=== PATIENT | female | born 2000 | race African-American/Black ===

== ENCOUNTER 2021-12-04 12:18 | Emergency (ER) | payer MEDICAID ==
[~2021-12-04] VITALS: Ht 157.5 cm; Wt 73.0 kg
[2021-12-04 13:26] VITALS: BP 117/78
[2021-12-04 14:15] LABS: BASOPHILS % 0.4 % (0.0-2.0); EOSINOPHILS % 4.6 % (0.0-5.0); HEMATOCRIT. 36.6 % (36.0-48.0); HEMOGLOBIN. 12.4 g/dL (12.0-16.0); LYMPHOCYTES % 21.2 % (20.0-50.0); MEAN CORPUSCULAR HEMOGLOBIN 27.5 pg (28.0-32.0); MEAN CORPUSCULAR VOLUME 81.3 fL (81.0-99.0); MEAN PLATELET VOLUME 9.3 fl (7.4-10.4); MONOCYTES % 6.5 % (2.0-8.0); NEUTROPHILS % 67.3 % (40.0-76.0); PLATELET 281 x1000/uL (130-400); RED BLOOD CELL COUNT 4.51 mill/uL (4.2-5.4); RED CELL DISTRIBUTION WIDTH 13.9 % (11.6-14.6)
[2021-12-04 14:24] LABS: CHLORIDE 109 mEq/L (98-107)
[2021-12-04 14:33] LABS: CLARITY URINE CLEAR (CLEAR); COLOR URINE YELLOW (YELLOW); KETONES URINE NEGATIVE (NEGATIVE); LEUKOCYTE ESTERASE URINE 1+ (NEGATIVE); NITRITE URINE NEGATIVE (NEGATIVE); OCCULT BLOOD URINE NEGATIVE (NEGATIVE); PROTEIN URINE NEGATIVE (NEGATIVE); SPECIFIC GRAVITY URINE 1.024 (1.005-1.030); UROBILINOGEN URINE 0.2 E.U./dL (0.2-1.0)
[2021-12-04 14:35] LABS: B-HCG QUANTITATIVE < 1 mIU/mL (<3)
== END 2021-12-04 15:10 | disposition home or self-care (01) ==
LOC: ER 12:18
DX: N83.201 Unspecified ovarian cyst, right side (principal); R10.30 Lower abdominal pain, unspecified; R10.13 Epigastric pain; J45.909 Unspecified asthma, uncomplicated; Z90.79 Acquired absence of other genital organ(s)
CPT/HCPCS: 36415; 76830; 76856; 80053; 81003; 81025; 84702; 85025; 86850; 86900; 99284